=== PATIENT | female | born 1945 ===

== ENCOUNTER 2022-03-26 15:35 | Inpatient (IN) ==
[2022-03-26] MEDS ORDERED: Melatonin 3 MG TABLET PO PRN (19:07)
[2022-03-26] MEDS ORDERED: Ondansetron 4 MG/2 ML VIAL IVP PRN (19:07)
[2022-03-26] MEDS ORDERED: Naloxone 0.4 MG/ML INJ IVP PRN (19:07)
[2022-03-26] MEDS ORDERED: Acetaminophen 325 MG TABLET PO PRN (19:07)
[2022-03-26] MEDS ORDERED: *HR* OxyCODONE Immed Rel 5 MG TABLET PO PRN (19:07)
[2022-03-26] MEDS ORDERED: Vancomycin 500 MG in 0.9 % Sodium Chloride 250 ML IVPB SCH (20:00)
[2022-03-26] MEDS ORDERED: Vancomycin 500 MG in 0.9 % Sodium Chloride Mini Bag 100 ML IVPB ONE (20:00)
[2022-03-26] MEDS ORDERED: *HR* Heparin 5,000 UNIT/ML VIAL ONE (20:01)
[2022-03-26] MEDS: *HR* Heparin 5,000 UNIT/ML VIAL SQ SCH (20:16)
[2022-03-26] MEDS: 0.9 % Sodium Chloride 1,000 ML IVC SCH (20:17)
[2022-03-26] MEDS: Piperacillin/Tazobactam 3.375 GM in 0.9 % Sodium Chloride Mini Bag 100 ML IVPB SCH (23:23)
[2022-03-27] MEDS ORDERED: Morphine Sulfate 2 MG/ML SYRINGE IVP ONE
[2022-03-27 01:53] LABS: Protein/Creatinine Ratio,Urine 11.23 mg/mg (0.00-0.20); Sodium, Urine 63.1 mEq/L
[2022-03-27 02:24] LABS: Basophils % 0.2 %; Eosinophils % 0.2 %; Hematocrit 30.1 % (35.3-44.9); Hemoglobin 9.9 g/dL (11.5-15.4); Immature Granulocytes % 0.9 % (0-4); Lymphocytes # 0.5 K/mcL (0.6-4.6); Lymphocytes % 2.8 %; Mean Corpuscular HGB Conc 32.9 g/dL (31.6-35.5); Mean Corpuscular Hemoglobin 29.3 pg (28.0-33.3); Mean Corpuscular Volume 89.1 fL (83.0-100.0); Mean Platelet Volume 10.4 fL (9.4-12.4); Monocytes # 0.5 K/mcL (0.0-1.3); Monocytes % 2.7 %; Neutrophils # 17.9 K/mcL (1.6-8.9); Platelet Count 551 K/mcL (140-400); Red Blood Count 3.38 M/mcL (3.82-4.97); Red Cell Distribution Width 13.2 % (11.5-14.5); Segmented Neutrophils % 93.2 %; White Blood Count 19.2 K/mcL (4.3-11.1)
[2022-03-27 02:33] LABS: INR 1.3; Prothrombin Time 14.8 Seconds (9.4-12.1)
[2022-03-27 02:50] LABS: BUN/Creatinine Ratio 66 (6-26); Blood Urea Nitrogen 68 mg/dL (8-23); C-Reactive Protein 50 mg/L (Less than 10); Carbon Dioxide 19 mEq/L (23-29); Chloride 116 mEq/L (98-107); Glucose 135 mg/dL (70-105); Osmolality,Calculated 324 (280-300); Phosphorous 4.1 mg/dL (2.7-4.5); Potassium 3.5 mEq/L (3.5-5.1); Sodium 146 mEq/L (136-145); eGFR For African Americans > 60 (> 60); eGFR For Non-African Americans 52 (> 60)
[2022-03-27] MEDS: *HR* Heparin 5,000 UNIT/ML VIAL SQ SCH ×3 (04:51→20:29)
[2022-03-27] MEDS: Sodium Bicarbonate 75 MEQ in 0.45 % Sodium Chloride 1,000 ML IVC SCH ×3 (04:51→23:11)
[2022-03-27] MEDS: 0.9 % Sodium Chloride 1,000 ML IVC SCH (04:52)
[2022-03-27] MEDS ORDERED: D5% in Water 1,000 ML IVC PRN (07:24)
[2022-03-27] MEDS ORDERED: Dextrose Gel 15 GM/37.5 ML TUBE PO PRN ×2 (07:24)
[2022-03-27] MEDS ORDERED: *HR* Dextrose 50 % in Water (Syg) 50 ML SYRINGE IVP PRN (07:24)
[2022-03-27] MEDS: Piperacillin/Tazobactam 3.375 GM in 0.9 % Sodium Chloride Mini Bag 100 ML IVPB SCH ×3 (08:46→23:11)
[2022-03-27] MEDS: Insulin LISPRO 300 UNITS/3 ML VIAL SUBQ SCH ×2 (11:55→17:29)
[2022-03-27] MEDS ORDERED: Vancomycin 500 MG in 0.9 % Sodium Chloride Mini Bag 100 ML IVPB SCH (20:00)
[2022-03-28] MEDS: Insulin LISPRO 300 UNITS/3 ML VIAL SUBQ SCH ×5 (00:07→23:27)
[2022-03-28] MEDS ORDERED: *HR* HYDROmorphone (PF) 1 MG/ML SYRINGE IVP ONE (03:24)
[2022-03-28 04:47] LABS: Basophils % 0.1 %; Hemoglobin 9.2 g/dL (11.5-15.4); Immature Granulocytes % 1.3 % (0-4); Lymphocytes # 0.8 K/mcL (0.6-4.6); Lymphocytes % 7.3 %; Mean Corpuscular HGB Conc 31.7 g/dL (31.6-35.5); Mean Corpuscular Hemoglobin 28.3 pg (28.0-33.3); Mean Corpuscular Volume 89.2 fL (83.0-100.0); Mean Platelet Volume 10.2 fL (9.4-12.4); Monocytes # 0.3 K/mcL (0.0-1.3); Monocytes % 2.7 %; Neutrophils # 9.7 K/mcL (1.6-8.9); Platelet Count 535 K/mcL (140-400); Red Blood Count 3.25 M/mcL (3.82-4.97); Red Cell Distribution Width 12.9 % (11.5-14.5); Segmented Neutrophils % 88.6 %; White Blood Count 10.9 K/mcL (4.3-11.1)
[2022-03-28 05:01] LABS: Alanine Aminotransferase 12 Units/L (7-52); Albumin 2.8 g/dL (3.5-5.7); Albumin/Globulin Ratio 1.1 (1.1-2.2); Alkaline Phosphatase 56 Units/L (34-104); Aspartate Amino Transferase 17 Units/L (13-39); BUN/Creatinine Ratio 61 (6-26); Bilirubin,Total 0.5 mg/dL (0.3-1.0); Blood Urea Nitrogen 43 mg/dL (8-23); Calcium 8.8 mg/dL (8.6-10.3); Carbon Dioxide 25 mEq/L (23-29); Chloride 116 mEq/L (98-107); Globulin 2.6 g/dL (2.4-3.5); Glucose 85 mg/dL (70-105); Magnesium 1.8 mg/dL (1.6-2.6); Osmolality,Calculated 320 (280-300); Phosphorous 2.4 mg/dL (2.7-4.5); Potassium 2.8 mEq/L (3.5-5.1); Sodium 150 mEq/L (136-145); Total Protein 5.4 g/dL (6.4-8.9); eGFR For African Americans > 60 (> 60); eGFR For Non-African Americans > 60 (> 60)
[2022-03-28] MEDS: *HR* Heparin 5,000 UNIT/ML VIAL SQ SCH ×3 (06:39→22:55)
[2022-03-28] MEDS ORDERED: Potassium Chloride 20 MEQ in D5% in Water 1,000 ML IVC SCH (07:30)
[2022-03-28] MEDS: Piperacillin/Tazobactam 3.375 GM in 0.9 % Sodium Chloride Mini Bag 100 ML IVPB SCH ×3 (08:00→22:54)
[2022-03-28] MEDS ORDERED: Vancomycin 500 MG in 0.9 % Sodium Chloride Mini Bag 100 ML IVPB SCH (20:00)
[2022-03-28] MEDS ORDERED: Acetaminophen IV 1,000 MG/100 ML BAG IVPB ONE (23:04)
[2022-03-29 01:49] LABS: Basophils % 0.3 %; Hematocrit 32.2 % (35.3-44.9); Hemoglobin 10.2 g/dL (11.5-15.4); Immature Granulocytes % 1.1 % (0-4); Lymphocytes # 0.9 K/mcL (0.6-4.6); Lymphocytes % 5.9 %; Mean Corpuscular HGB Conc 31.7 g/dL (31.6-35.5); Mean Corpuscular Hemoglobin 28.6 pg (28.0-33.3); Mean Corpuscular Volume 90.2 fL (83.0-100.0); Mean Platelet Volume 10.3 fL (9.4-12.4); Monocytes # 0.6 K/mcL (0.0-1.3); Monocytes % 3.8 %; Neutrophils # 13.2 K/mcL (1.6-8.9); Platelet Count 605 K/mcL (140-400); Red Blood Count 3.57 M/mcL (3.82-4.97); Red Cell Distribution Width 12.8 % (11.5-14.5); Segmented Neutrophils % 88.9 %; White Blood Count 14.9 K/mcL (4.3-11.1)
[2022-03-29 02:09] LABS: BUN/Creatinine Ratio 55 (6-26); Blood Urea Nitrogen 30 mg/dL (8-23); Carbon Dioxide 24 mEq/L (23-29); Chloride 117 mEq/L (98-107); Glucose 90 mg/dL (70-105); Magnesium 1.8 mg/dL (1.6-2.6); Osmolality,Calculated 320 (280-300); Phosphorous 1.9 mg/dL (2.7-4.5); Potassium 2.8 mEq/L (3.5-5.1); Sodium 152 mEq/L (136-145); eGFR For African Americans > 60 (> 60); eGFR For Non-African Americans > 60 (> 60)
[2022-03-29] MEDS: Insulin LISPRO 300 UNITS/3 ML VIAL SUBQ SCH ×3 (05:24→17:45)
[2022-03-29] MEDS: *HR* Heparin 5,000 UNIT/ML VIAL SQ SCH ×3 (05:25→22:41)
[2022-03-29] MEDS: Piperacillin/Tazobactam 3.375 GM in 0.9 % Sodium Chloride Mini Bag 100 ML IVPB SCH ×3 (09:17→23:39)
[2022-03-29] MEDS: D5% in Water 1,000 ML IVC SCH ×2 (09:18→19:58)
[2022-03-29 12:07] LABS: Adenovirus Not Detected (Not Detect); Bordetella Pertussis Not Detected (Not Detect); Chlamydophila pneumoniae Not Detected (Not Detect); Coronavirus 229E Not Detected (Not Detect); Coronavirus HKU1 Not Detected (Not Detect); Coronavirus NL63 Not Detected (Not Detect); Coronavirus OC43 Not Detected (Not Detect); Human Metapneumovirus Not Detected (Not Detect); Human Rhinovirus/Enterovirus Not Detected (Not Detect); Influenza A Subtype 2009 H1 Not Detected (Not Detect); Influenza B Not Detected (Not Detect); Mycoplasma pneumoniae Not Detected (Not Detect); Parainfluenza Virus 1 Not Detected (Not Detect); Parainfluenza Virus 2 Not Detected (Not Detect); Parainfluenza Virus 3 Not Detected (Not Detect); Parainfluenza Virus 4 Not Detected (Not Detect); Respiratory Syncytial Virus Not Detected (Not Detect); SARS-CoV-2 Not Detected (Not Detect)
[2022-03-30] MEDS: Insulin LISPRO 300 UNITS/3 ML VIAL SUBQ SCH ×4 (00:55→17:25)
[2022-03-30 04:41] LABS: Basophils % 0.1 %; Eosinophils % 0.1 %; Hematocrit 29.5 % (35.3-44.9); Hemoglobin 9.5 g/dL (11.5-15.4); Lymphocytes # 0.9 K/mcL (0.6-4.6); Lymphocytes % 6.3 %; Mean Corpuscular HGB Conc 32.2 g/dL (31.6-35.5); Mean Corpuscular Hemoglobin 28.5 pg (28.0-33.3); Mean Corpuscular Volume 88.6 fL (83.0-100.0); Mean Platelet Volume 10.2 fL (9.4-12.4); Monocytes # 0.6 K/mcL (0.0-1.3); Neutrophils # 12.8 K/mcL (1.6-8.9); Platelet Count 606 K/mcL (140-400); Red Blood Count 3.33 M/mcL (3.82-4.97); Segmented Neutrophils % 88.5 %; White Blood Count 14.4 K/mcL (4.3-11.1)
[2022-03-30 05:02] LABS: BUN/Creatinine Ratio 46 (6-26); Blood Urea Nitrogen 26 mg/dL (8-23); Calcium 8.8 mg/dL (8.6-10.3); Carbon Dioxide 25 mEq/L (23-29); Chloride 115 mEq/L (98-107); Glucose 168 mg/dL (70-105); Magnesium 1.7 mg/dL (1.6-2.6); Osmolality,Calculated 313 (280-300); Phosphorous 1.4 mg/dL (2.7-4.5); Potassium 3.1 mEq/L (3.5-5.1); Sodium 147 mEq/L (136-145); eGFR For African Americans > 60 (> 60); eGFR For Non-African Americans > 60 (> 60)
[2022-03-30] MEDS: *HR* Heparin 5,000 UNIT/ML VIAL SQ SCH ×2 (05:44→15:47)
[2022-03-30] MEDS: D5% in Water 1,000 ML IVC SCH (05:44)
[2022-03-30] MEDS ORDERED: Potassium Phosphate 44 MEQ in 0.9 % Sodium Chloride 250 ML IVPB ONE (07:40)
[2022-03-30] MEDS: Piperacillin/Tazobactam 3.375 GM in 0.9 % Sodium Chloride Mini Bag 100 ML IVPB SCH (08:10)
[2022-03-30] MEDS: cefTRIAXone 2,000 MG in 0.9 % Sodium Chloride Mini Bag 100 ML IVPB SCH (17:16)
[2022-03-30] MEDS: Ampicillin 2,000 MG in 0.9 % Sodium Chloride Mini Bag 100 ML IVPB SCH (18:39)
[2022-03-30] MEDS: Acyclovir 500 MG in D5% in Water 100 ML IVPB SCH (20:16)
[2022-03-30] MEDS: Vancomycin 1,250 MG/262.5 ML IV.SOLN IVPB SCH (21:39)
[2022-03-31] MEDS: Ampicillin 2,000 MG in 0.9 % Sodium Chloride Mini Bag 100 ML IVPB SCH ×4 (00:19→17:55)
[2022-03-31] MEDS: D5% in Water 1,000 ML IVC SCH ×2 (00:20→14:25)
[2022-03-31] MEDS: *HR* Heparin 5,000 UNIT/ML VIAL SQ SCH ×4 (00:21→20:41)
[2022-03-31 03:09] LABS: Basophils # 0.1 K/mcL (0.0-0.2); Basophils % 0.3 %; Eosinophils # 0.1 K/mcL (0.0-0.6); Eosinophils % 0.6 %; Hemoglobin 9.7 g/dL (11.5-15.4); Immature Granulocytes % 1.6 % (0-4); Lymphocytes % 7.1 %; Mean Corpuscular HGB Conc 32.3 g/dL (31.6-35.5); Mean Corpuscular Volume 89.6 fL (83.0-100.0); Mean Platelet Volume 10.6 fL (9.4-12.4); Monocytes # 0.4 K/mcL (0.0-1.3); Neutrophils # 12.7 K/mcL (1.6-8.9); Platelet Count 568 K/mcL (140-400); Red Blood Count 3.35 M/mcL (3.82-4.97); Red Cell Distribution Width 13.2 % (11.5-14.5); Segmented Neutrophils % 87.4 %; White Blood Count 14.6 K/mcL (4.3-11.1)
[2022-03-31 03:28] LABS: BUN/Creatinine Ratio 39 (6-26); Blood Urea Nitrogen 25 mg/dL (8-23); Calcium 8.2 mg/dL (8.6-10.3); Carbon Dioxide 24 mEq/L (23-29); Chloride 114 mEq/L (98-107); Glucose 136 mg/dL (70-105); Osmolality,Calculated 306 (280-300); Potassium 3.6 mEq/L (3.5-5.1); Sodium 145 mEq/L (136-145); eGFR For African Americans > 60 (> 60); eGFR For Non-African Americans > 60 (> 60)
[2022-03-31] MEDS: cefTRIAXone 2,000 MG in 0.9 % Sodium Chloride Mini Bag 100 ML IVPB SCH ×2 (05:49→17:55)
[2022-03-31] MEDS: Insulin LISPRO 300 UNITS/3 ML VIAL SUBQ SCH ×4 (07:13→17:56)
[2022-03-31] MEDS ORDERED: Perflutren Lipid Microsphere 1.3 ML in 0.9 % Sodium Chloride 8.7 ML IVP PRN (07:32)
[2022-03-31] MEDS: Acyclovir 500 MG in D5% in Water 100 ML IVPB SCH ×2 (07:58→17:54)
[2022-03-31 10:27] LABS: Phosphorous 3.3 mg/dL (2.7-4.5)
[2022-03-31] MEDS ORDERED: Clinimix E 5%-15% SOLUTION 2,000 ML with MVI, adult with vitamin K 10 ML IVC SCH (17:00)
[2022-03-31 17:38] LABS: Appearance,CSF Clear (Clear); Red Blood Cell,CSF < 2000 RBC/mcL
[2022-03-31 18:02] LABS: Basophils,CSF 0 %; Eosinophils,CSF 0 %; Other Cells,CSF 0 %
[2022-03-31] MEDS: Vancomycin 1,250 MG/262.5 ML IV.SOLN IVPB SCH (20:39)
[2022-04-01] MEDS: Ampicillin 2,000 MG in 0.9 % Sodium Chloride Mini Bag 100 ML IVPB SCH ×4 (01:15→17:33)
[2022-04-01] MEDS: Insulin LISPRO 300 UNITS/3 ML VIAL SUBQ SCH ×5 (01:17→21:16)
[2022-04-01] MEDS: cefTRIAXone 2,000 MG in 0.9 % Sodium Chloride Mini Bag 100 ML IVPB SCH ×2 (05:52→18:11)
[2022-04-01] MEDS: *HR* Heparin 5,000 UNIT/ML VIAL SQ SCH ×3 (05:54→21:17)
[2022-04-01] MEDS: Acyclovir 500 MG in D5% in Water 100 ML IVPB SCH ×2 (05:54→18:44)
[2022-04-01 07:49] LABS: Basophils % 0.3 %; Eosinophils # 0.2 K/mcL (0.0-0.6); Hematocrit 30.4 % (35.3-44.9); Hemoglobin 9.8 g/dL (11.5-15.4); Immature Granulocytes % 1.4 % (0-4); Lymphocytes # 0.8 K/mcL (0.6-4.6); Lymphocytes % 6.2 %; Mean Corpuscular HGB Conc 32.2 g/dL (31.6-35.5); Mean Corpuscular Hemoglobin 28.8 pg (28.0-33.3); Mean Corpuscular Volume 89.4 fL (83.0-100.0); Mean Platelet Volume 10.4 fL (9.4-12.4); Monocytes # 0.4 K/mcL (0.0-1.3); Monocytes % 3.5 %; Neutrophils # 10.5 K/mcL (1.6-8.9); Platelet Count 482 K/mcL (140-400); Red Cell Distribution Width 13.1 % (11.5-14.5); Segmented Neutrophils % 86.6 %; White Blood Count 12.2 K/mcL (4.3-11.1)
[2022-04-01 07:57] LABS: BUN/Creatinine Ratio 47 (6-26); Blood Urea Nitrogen 18 mg/dL (8-23); Carbon Dioxide 28 mEq/L (23-29); Chloride 110 mEq/L (98-107); Glucose 184 mg/dL (70-105); Magnesium 1.6 mg/dL (1.6-2.6); Osmolality,Calculated 299 (280-300); Phosphorous 2.3 mg/dL (2.7-4.5); Potassium 3.2 mEq/L (3.5-5.1); Sodium 141 mEq/L (136-145); Triglycerides 107 mg/dL (< 150); eGFR For African Americans > 60 (> 60); eGFR For Non-African Americans > 60 (> 60)
[2022-04-01] MEDS ORDERED: Lidocaine -MPF 1% 5 ML AMPUL ID ONE (09:30)
[2022-04-01] MEDS ORDERED: Metoprolol XL (24 HR) Succ 25 MG TAB.ER.24H PO SCH (10:45)
[2022-04-01] MEDS ORDERED: Perflutren Lipid Microsphere 1.3 ML in 0.9 % Sodium Chloride 8.7 ML IVP PRN (11:20)
[2022-04-01] MEDS ORDERED: D10% in Water 500 ML IVC PRN ×2 (11:33→11:40)
[2022-04-01] MEDS ORDERED: Potassium Phosphate 44 MEQ in 0.9 % Sodium Chloride 250 ML IVPB ONE (11:52)
[2022-04-01] MEDS ORDERED: Clinimix E 5%-15% SOLUTION 2,000 ML with MVI, adult with vitamin K 10 ML IVC SCH (17:00)
[2022-04-01] MEDS: *HR* Metoprolol 5 MG/5 ML VIAL IVP SCH ×2 (17:36→21:17)
[2022-04-01] MEDS: Vancomycin 1,250 MG/262.5 ML IV.SOLN IVPB SCH (21:16)
[2022-04-02] MEDS: Ampicillin 2,000 MG in 0.9 % Sodium Chloride Mini Bag 100 ML IVPB SCH ×4 (01:01→18:03)
[2022-04-02] MEDS: Insulin LISPRO 300 UNITS/3 ML VIAL SUBQ SCH ×6 (01:02→21:34)
[2022-04-02] MEDS: cefTRIAXone 2,000 MG in 0.9 % Sodium Chloride Mini Bag 100 ML IVPB SCH ×2 (06:41→18:02)
[2022-04-02] MEDS: *HR* Heparin 5,000 UNIT/ML VIAL SQ SCH ×3 (06:42→21:34)
[2022-04-02] MEDS: Acyclovir 500 MG in D5% in Water 100 ML IVPB SCH ×2 (06:51→18:03)
[2022-04-02 07:24] LABS: Basophils % 0.3 %; Eosinophils # 0.2 K/mcL (0.0-0.6); Eosinophils % 1.5 %; Hematocrit 33.4 % (35.3-44.9); Hemoglobin 10.9 g/dL (11.5-15.4); Immature Granulocytes % 1.5 % (0-4); Lymphocytes # 0.7 K/mcL (0.6-4.6); Lymphocytes % 5.6 %; Mean Corpuscular HGB Conc 32.6 g/dL (31.6-35.5); Mean Corpuscular Hemoglobin 28.7 pg (28.0-33.3); Mean Corpuscular Volume 87.9 fL (83.0-100.0); Mean Platelet Volume 10.8 fL (9.4-12.4); Monocytes # 0.5 K/mcL (0.0-1.3); Monocytes % 3.5 %; Neutrophils # 11.4 K/mcL (1.6-8.9); Platelet Count 462 K/mcL (140-400); Red Cell Distribution Width 13.1 % (11.5-14.5); Segmented Neutrophils % 87.6 %
[2022-04-02 07:54] LABS: Alanine Aminotransferase 56 Units/L (7-52); Albumin 2.7 g/dL (3.5-5.7); Alkaline Phosphatase 93 Units/L (34-104); Aspartate Amino Transferase 42 Units/L (13-39); BUN/Creatinine Ratio 60 (6-26); Bilirubin,Total 0.3 mg/dL (0.3-1.0); Blood Urea Nitrogen 21 mg/dL (8-23); Calcium 8.6 mg/dL (8.6-10.3); Carbon Dioxide 27 mEq/L (23-29); Chloride 109 mEq/L (98-107); Globulin 2.6 g/dL (2.4-3.5); Glucose 149 mg/dL (70-105); Magnesium 1.6 mg/dL (1.6-2.6); Osmolality,Calculated 298 (280-300); Phosphorous 2.9 mg/dL (2.7-4.5); Potassium 4.1 mEq/L (3.5-5.1); Sodium 141 mEq/L (136-145); Total Protein 5.3 g/dL (6.4-8.9); eGFR For African Americans > 60 (> 60); eGFR For Non-African Americans > 60 (> 60)
[2022-04-02] MEDS: *HR* Metoprolol 5 MG/5 ML VIAL IVP SCH ×2 (09:09→21:34)
[2022-04-02] MEDS ORDERED: Clinimix E 5%-15% SOLUTION 2,000 ML with MVI, adult with vitamin K 10 ML IVC SCH (17:00)
[2022-04-02] MEDS ORDERED: Clinimix E 5%-15% SOLUTION 2,000 ML, Amino Acids 10% 0 ML with MVI, adult with vitami... IVC SCH (17:00)
[2022-04-02] MEDS: Vancomycin 1,250 MG/262.5 ML IV.SOLN IVPB SCH (21:29)
[2022-04-03] MEDS: Insulin LISPRO 300 UNITS/3 ML VIAL SUBQ SCH ×7 (00:40→23:27)
[2022-04-03] MEDS: Ampicillin 2,000 MG in 0.9 % Sodium Chloride Mini Bag 100 ML IVPB SCH ×5 (00:41→23:17)
[2022-04-03] MEDS: Acyclovir 500 MG in D5% in Water 100 ML IVPB SCH ×2 (06:41→19:23)
[2022-04-03] MEDS: cefTRIAXone 2,000 MG in 0.9 % Sodium Chloride Mini Bag 100 ML IVPB SCH ×2 (06:42→17:39)
[2022-04-03] MEDS: *HR* Heparin 5,000 UNIT/ML VIAL SQ SCH ×3 (06:42→23:15)
[2022-04-03 09:37] LABS: Basophils % 0.3 %; Eosinophils # 0.4 K/mcL (0.0-0.6); Eosinophils % 2.6 %; Hemoglobin 10.5 g/dL (11.5-15.4); Immature Granulocytes % 2.1 % (0-4); Lymphocytes % 6.8 %; Mean Corpuscular HGB Conc 32.8 g/dL (31.6-35.5); Mean Corpuscular Hemoglobin 29.2 pg (28.0-33.3); Mean Corpuscular Volume 88.9 fL (83.0-100.0); Mean Platelet Volume 11.3 fL (9.4-12.4); Monocytes # 0.6 K/mcL (0.0-1.3); Monocytes % 3.9 %; Neutrophils # 12.2 K/mcL (1.6-8.9); Platelet Count 443 K/mcL (140-400); Red Cell Distribution Width 13.1 % (11.5-14.5); Segmented Neutrophils % 84.3 %; White Blood Count 14.4 K/mcL (4.3-11.1)
[2022-04-03 09:59] LABS: Alanine Aminotransferase 39 Units/L (7-52); Albumin 2.3 g/dL (3.5-5.7); Albumin/Globulin Ratio 0.9 (1.1-2.2); Alkaline Phosphatase 84 Units/L (34-104); Aspartate Amino Transferase 33 Units/L (13-39); BUN/Creatinine Ratio 72 (6-26); Bilirubin,Total 0.2 mg/dL (0.3-1.0); Blood Urea Nitrogen 21 mg/dL (8-23); Calcium 8.1 mg/dL (8.6-10.3); Carbon Dioxide 25 mEq/L (23-29); Chloride 106 mEq/L (98-107); Globulin 2.6 g/dL (2.4-3.5); Glucose 175 mg/dL (70-105); Magnesium 1.5 mg/dL (1.6-2.6); Osmolality,Calculated 293 (280-300); Phosphorous 2.5 mg/dL (2.7-4.5); Potassium 3.5 mEq/L (3.5-5.1); Sodium 138 mEq/L (136-145); Total Protein 4.9 g/dL (6.4-8.9); eGFR For African Americans > 60 (> 60); eGFR For Non-African Americans > 60 (> 60)
[2022-04-03] MEDS: *HR* Metoprolol 5 MG/5 ML VIAL IVP SCH ×2 (10:14→20:18)
[2022-04-03] MEDS ORDERED: Clinimix E 5%-15% SOLUTION 2,000 ML with MVI, adult with vitamin K 10 ML IVC SCH (17:00)
[2022-04-03] MEDS: Vancomycin 1,250 MG/262.5 ML IV.SOLN IVPB SCH (20:18)
[2022-04-04 03:27] LABS: Basophils # 0.1 K/mcL (0.0-0.2); Basophils % 0.4 %; Eosinophils # 0.3 K/mcL (0.0-0.6); Eosinophils % 2.2 %; Hematocrit 30.7 % (35.3-44.9); Immature Granulocytes % 2.6 % (0-4); Lymphocytes % 7.5 %; Mean Corpuscular HGB Conc 32.6 g/dL (31.6-35.5); Mean Corpuscular Hemoglobin 29.1 pg (28.0-33.3); Mean Corpuscular Volume 89.2 fL (83.0-100.0); Mean Platelet Volume 11.2 fL (9.4-12.4); Monocytes # 0.6 K/mcL (0.0-1.3); Monocytes % 4.7 %; Neutrophils # 11.1 K/mcL (1.6-8.9); Platelet Count 463 K/mcL (140-400); Red Blood Count 3.44 M/mcL (3.82-4.97); Red Cell Distribution Width 13.4 % (11.5-14.5); Segmented Neutrophils % 82.6 %; White Blood Count 13.4 K/mcL (4.3-11.1)
[2022-04-04 03:47] LABS: Alanine Aminotransferase 30 Units/L (7-52); Albumin 2.2 g/dL (3.5-5.7); Albumin/Globulin Ratio 0.9 (1.1-2.2); Alkaline Phosphatase 71 Units/L (34-104); Aspartate Amino Transferase 30 Units/L (13-39); BUN/Creatinine Ratio 73 (6-26); Bilirubin,Total 0.3 mg/dL (0.3-1.0); Blood Urea Nitrogen 22 mg/dL (8-23); Carbon Dioxide 26 mEq/L (23-29); Chloride 107 mEq/L (98-107); Globulin 2.5 g/dL (2.4-3.5); Glucose 127 mg/dL (70-105); Magnesium 1.5 mg/dL (1.6-2.6); Osmolality,Calculated 293 (280-300); Phosphorous 3.7 mg/dL (2.7-4.5); Potassium 3.3 mEq/L (3.5-5.1); Sodium 139 mEq/L (136-145); Total Protein 4.7 g/dL (6.4-8.9); eGFR For African Americans > 60 (> 60); eGFR For Non-African Americans > 60 (> 60)
[2022-04-04] MEDS: Insulin LISPRO 300 UNITS/3 ML VIAL SUBQ SCH ×5 (05:40→22:15)
[2022-04-04] MEDS: Ampicillin 2,000 MG in 0.9 % Sodium Chloride Mini Bag 100 ML IVPB SCH ×2 (05:52→11:47)
[2022-04-04] MEDS: Acyclovir 500 MG in D5% in Water 100 ML IVPB SCH ×2 (05:52→17:27)
[2022-04-04] MEDS: *HR* Heparin 5,000 UNIT/ML VIAL SQ SCH ×3 (05:53→22:07)
[2022-04-04] MEDS: cefTRIAXone 2,000 MG in 0.9 % Sodium Chloride Mini Bag 100 ML IVPB SCH (06:42)
[2022-04-04] MEDS: *HR* Metoprolol 5 MG/5 ML VIAL IVP SCH ×2 (08:44→22:08)
[2022-04-04] MEDS ORDERED: MVI IVC SCH (17:00)
[2022-04-04] MEDS ORDERED: [UNRECOGNIZED DRUG - OTHER] IVC SCH (17:00)
[2022-04-04] MEDS ORDERED: CLINIMIX E IVC SCH (17:00)
[2022-04-04] MEDS ORDERED: Clinimix E 5%-15% SOLUTION 2,000 ML with MVI, adult with vitamin K 10 ML IVC SCH (17:00)
[2022-04-04] MEDS ORDERED: AMINO ACIDS 10% IVC SCH (17:00)
[2022-04-05] MEDS: Insulin LISPRO 300 UNITS/3 ML VIAL SUBQ SCH ×6 (00:27→22:59)
[2022-04-05 05:46] LABS: Basophils % 0.4 %; Eosinophils # 0.3 K/mcL (0.0-0.6); Immature Granulocytes % 2.5 % (0-4); Mean Corpuscular HGB Conc 33.3 g/dL (31.6-35.5); Mean Corpuscular Hemoglobin 29.8 pg (28.0-33.3); Mean Corpuscular Volume 89.3 fL (83.0-100.0); Mean Platelet Volume 10.9 fL (9.4-12.4); Monocytes # 0.6 K/mcL (0.0-1.3); Monocytes % 4.9 %; Neutrophils # 9.1 K/mcL (1.6-8.9); Platelet Count 406 K/mcL (140-400); Red Blood Count 3.36 M/mcL (3.82-4.97); Red Cell Distribution Width 14.1 % (11.5-14.5); Segmented Neutrophils % 80.2 %; White Blood Count 11.4 K/mcL (4.3-11.1)
[2022-04-05 06:07] LABS: Alanine Aminotransferase 25 Units/L (7-52); Albumin 2.4 g/dL (3.5-5.7); Albumin/Globulin Ratio 0.9 (1.1-2.2); Alkaline Phosphatase 87 Units/L (34-104); Aspartate Amino Transferase 24 Units/L (13-39); BUN/Creatinine Ratio 90 (6-26); Bilirubin,Total 0.2 mg/dL (0.3-1.0); Blood Urea Nitrogen 26 mg/dL (8-23); Calcium 8.5 mg/dL (8.6-10.3); Carbon Dioxide 28 mEq/L (23-29); Chloride 106 mEq/L (98-107); Globulin 2.6 g/dL (2.4-3.5); Glucose 110 mg/dL (70-105); Magnesium 1.6 mg/dL (1.6-2.6); Osmolality,Calculated 291 (280-300); Phosphorous 2.8 mg/dL (2.7-4.5); Potassium 3.7 mEq/L (3.5-5.1); Sodium 138 mEq/L (136-145); eGFR For African Americans > 60 (> 60); eGFR For Non-African Americans > 60 (> 60)
[2022-04-05] MEDS: *HR* Heparin 5,000 UNIT/ML VIAL SQ SCH ×3 (06:41→22:56)
[2022-04-05] MEDS: Acyclovir 500 MG in D5% in Water 100 ML IVPB SCH ×2 (06:49→17:25)
[2022-04-05] MEDS: *HR* Metoprolol 5 MG/5 ML VIAL IVP SCH ×2 (08:14→22:59)
[2022-04-05 12:33] LABS: HSV Source CSF
[2022-04-05] MEDS ORDERED: 0.9 % Sodium Chloride 500 ML ONE ×2 (15:04→15:09)
[2022-04-05] MEDS ORDERED: Lidocaine/EPI 1:100k 1% 50 ML VIAL ONE (15:04)
[2022-04-05] MEDS ORDERED: *HR* Midazolam HCl 2 MG/2 ML VIAL IVP ONE (15:18)
[2022-04-05] MEDS ORDERED: *HR* FentaNYL (PF) 100 MCG/2 ML VIAL IVP ONE (15:18)
[2022-04-05] MEDS ORDERED: *HR* FentaNYL (PF) 100 MCG/2 ML VIAL ONE (15:21)
[2022-04-05] MEDS ORDERED: *HR* Midazolam HCl 2 MG/2 ML VIAL ONE (15:21)
[2022-04-05] MEDS ORDERED: Iopamidol - 300 50 ML VIAL IVP ONE ×2 (16:10→16:11)
[2022-04-05] MEDS ORDERED: Clinimix E 5%-15% SOLUTION 2,000 ML with MVI, adult with vitamin K 10 ML IVC SCH (17:00)
[2022-04-06] MEDS: Insulin LISPRO 300 UNITS/3 ML VIAL SUBQ SCH ×6 (00:16→21:12)
[2022-04-06 03:54] LABS: Basophils % 0.3 %; Eosinophils # 0.1 K/mcL (0.0-0.6); Eosinophils % 0.7 %; Hematocrit 28.2 % (35.3-44.9); Hemoglobin 9.2 g/dL (11.5-15.4); Lymphocytes # 0.9 K/mcL (0.6-4.6); Lymphocytes % 9.7 %; Mean Corpuscular HGB Conc 32.6 g/dL (31.6-35.5); Mean Platelet Volume 11.1 fL (9.4-12.4); Monocytes # 0.6 K/mcL (0.0-1.3); Monocytes % 6.2 %; Neutrophils # 7.7 K/mcL (1.6-8.9); Platelet Count 389 K/mcL (140-400); Red Blood Count 3.17 M/mcL (3.82-4.97); Red Cell Distribution Width 14.3 % (11.5-14.5); Segmented Neutrophils % 81.1 %; White Blood Count 9.6 K/mcL (4.3-11.1)
[2022-04-06 04:10] LABS: Alanine Aminotransferase 20 Units/L (7-52); Albumin 2.3 g/dL (3.5-5.7); Albumin/Globulin Ratio 0.9 (1.1-2.2); Alkaline Phosphatase 74 Units/L (34-104); Aspartate Amino Transferase 22 Units/L (13-39); BUN/Creatinine Ratio 96 (6-26); Bilirubin,Total 0.3 mg/dL (0.3-1.0); Blood Urea Nitrogen 26 mg/dL (8-23); Calcium 8.4 mg/dL (8.6-10.3); Carbon Dioxide 26 mEq/L (23-29); Chloride 105 mEq/L (98-107); Globulin 2.5 g/dL (2.4-3.5); Glucose 116 mg/dL (70-105); Magnesium 1.6 mg/dL (1.6-2.6); Osmolality,Calculated 290 (280-300); Phosphorous 3.2 mg/dL (2.7-4.5); Potassium 3.6 mEq/L (3.5-5.1); Sodium 137 mEq/L (136-145); Total Protein 4.8 g/dL (6.4-8.9); eGFR For African Americans > 60 (> 60); eGFR For Non-African Americans > 60 (> 60)
[2022-04-06] MEDS: Acyclovir 500 MG in D5% in Water 100 ML IVPB SCH ×2 (06:45→16:59)
[2022-04-06] MEDS: *HR* Heparin 5,000 UNIT/ML VIAL SQ SCH ×3 (06:46→21:24)
[2022-04-06] MEDS: *HR* Metoprolol 5 MG/5 ML VIAL IVP SCH ×2 (08:06→16:10)
[2022-04-07] MEDS: *HR* Metoprolol 5 MG/5 ML VIAL IVP SCH ×2 (00:31→09:28)
[2022-04-07] MEDS: Insulin LISPRO 300 UNITS/3 ML VIAL SUBQ SCH ×6 (00:31→19:05)
[2022-04-07 04:59] LABS: Basophils % 0.3 %; Eosinophils # 0.1 K/mcL (0.0-0.6); Hematocrit 29.7 % (35.3-44.9); Hemoglobin 9.6 g/dL (11.5-15.4); Immature Granulocytes % 1.7 % (0-4); Lymphocytes % 8.4 %; Mean Corpuscular HGB Conc 32.3 g/dL (31.6-35.5); Mean Corpuscular Hemoglobin 29.2 pg (28.0-33.3); Mean Corpuscular Volume 90.3 fL (83.0-100.0); Mean Platelet Volume 11.3 fL (9.4-12.4); Monocytes # 0.7 K/mcL (0.0-1.3); Monocytes % 6.2 %; Neutrophils # 9.9 K/mcL (1.6-8.9); Platelet Count 370 K/mcL (140-400); Red Blood Count 3.29 M/mcL (3.82-4.97); Red Cell Distribution Width 15.2 % (11.5-14.5); Segmented Neutrophils % 82.4 %
[2022-04-07 05:07] LABS: BUN/Creatinine Ratio 82 (6-26); Blood Urea Nitrogen 28 mg/dL (8-23); Calcium 8.8 mg/dL (8.6-10.3); Carbon Dioxide 28 mEq/L (23-29); Chloride 103 mEq/L (98-107); Glucose 113 mg/dL (70-105); Magnesium 1.6 mg/dL (1.6-2.6); Osmolality,Calculated 286 (280-300); Potassium 4.5 mEq/L (3.5-5.1); Sodium 135 mEq/L (136-145); eGFR For African Americans > 60 (> 60); eGFR For Non-African Americans > 60 (> 60)
[2022-04-07] MEDS: *HR* Heparin 5,000 UNIT/ML VIAL SQ SCH ×3 (05:13→20:56)
[2022-04-07] MEDS: Acyclovir 500 MG in D5% in Water 100 ML IVPB SCH ×2 (05:21→17:35)
[2022-04-07] MEDS ORDERED: Melatonin 3 MG TABLET GTUBE PRN (14:42)
[2022-04-07] MEDS: Mirtazapine 15 MG TABLET GTUBE SCH (20:55)
[2022-04-07] MEDS: Gabapentin 100 MG CAPSULE GTUBE SCH (20:55)
[2022-04-08] MEDS: Insulin LISPRO 300 UNITS/3 ML VIAL SUBQ SCH ×4 (02:12→18:42)
[2022-04-08 04:46] LABS: Basophils % 0.3 %; Eosinophils # 0.1 K/mcL (0.0-0.6); Eosinophils % 1.2 %; Hematocrit 26.4 % (35.3-44.9); Hemoglobin 8.3 g/dL (11.5-15.4); Immature Granulocytes % 1.4 % (0-4); Lymphocytes # 0.9 K/mcL (0.6-4.6); Lymphocytes % 11.8 %; Mean Corpuscular HGB Conc 31.4 g/dL (31.6-35.5); Mean Corpuscular Hemoglobin 29.1 pg (28.0-33.3); Mean Corpuscular Volume 92.6 fL (83.0-100.0); Mean Platelet Volume 11.6 fL (9.4-12.4); Monocytes # 0.5 K/mcL (0.0-1.3); Neutrophils # 5.7 K/mcL (1.6-8.9); Platelet Count 341 K/mcL (140-400); Red Blood Count 2.85 M/mcL (3.82-4.97); Red Cell Distribution Width 15.8 % (11.5-14.5); Segmented Neutrophils % 78.3 %; White Blood Count 7.3 K/mcL (4.3-11.1)
[2022-04-08 05:07] LABS: BUN/Creatinine Ratio 66 (6-26); Blood Urea Nitrogen 21 mg/dL (8-23); Calcium 8.5 mg/dL (8.6-10.3); Carbon Dioxide 29 mEq/L (23-29); Chloride 103 mEq/L (98-107); Glucose 123 mg/dL (70-105); Osmolality,Calculated 286 (280-300); Potassium 4.3 mEq/L (3.5-5.1); Sodium 136 mEq/L (136-145); eGFR For African Americans > 60 (> 60); eGFR For Non-African Americans > 60 (> 60)
[2022-04-08] MEDS: *HR* Heparin 5,000 UNIT/ML VIAL SQ SCH ×3 (05:43→22:00)
[2022-04-08] MEDS: Acyclovir 500 MG in D5% in Water 100 ML IVPB SCH ×2 (05:44→18:47)
[2022-04-08] MEDS: Gabapentin 100 MG CAPSULE GTUBE SCH ×2 (10:39→22:00)
[2022-04-08] MEDS ORDERED: Iopamidol - 370 500 ML MLS IVP ONE (14:32)
[2022-04-08] MEDS: Mirtazapine 15 MG TABLET GTUBE SCH (22:00)
[2022-04-09] MEDS: Insulin LISPRO 300 UNITS/3 ML VIAL SUBQ SCH ×3 (00:07→12:28)
[2022-04-09 05:48] LABS: Basophils % 0.3 %; Eosinophils # 0.1 K/mcL (0.0-0.6); Eosinophils % 1.1 %; Hematocrit 27.6 % (35.3-44.9); Hemoglobin 8.8 g/dL (11.5-15.4); Immature Granulocytes % 1.1 % (0-4); Lymphocytes # 0.8 K/mcL (0.6-4.6); Lymphocytes % 12.5 %; Mean Corpuscular HGB Conc 31.9 g/dL (31.6-35.5); Mean Corpuscular Hemoglobin 29.7 pg (28.0-33.3); Mean Corpuscular Volume 93.2 fL (83.0-100.0); Mean Platelet Volume 11.5 fL (9.4-12.4); Monocytes # 0.5 K/mcL (0.0-1.3); Monocytes % 7.4 %; Neutrophils # 5.2 K/mcL (1.6-8.9); Platelet Count 311 K/mcL (140-400); Red Blood Count 2.96 M/mcL (3.82-4.97); Red Cell Distribution Width 16.5 % (11.5-14.5); Segmented Neutrophils % 77.6 %; White Blood Count 6.6 K/mcL (4.3-11.1)
[2022-04-09 06:00] LABS: BUN/Creatinine Ratio 53 (6-26); Blood Urea Nitrogen 19 mg/dL (8-23); Calcium 8.7 mg/dL (8.6-10.3); Carbon Dioxide 32 mEq/L (23-29); Chloride 99 mEq/L (98-107); Glucose 160 mg/dL (70-105); Osmolality,Calculated 284 (280-300); Potassium 4.6 mEq/L (3.5-5.1); Sodium 134 mEq/L (136-145); eGFR For African Americans > 60 (> 60); eGFR For Non-African Americans > 60 (> 60)
[2022-04-09] MEDS: *HR* Heparin 5,000 UNIT/ML VIAL SQ SCH (06:21)
[2022-04-09] MEDS: Acyclovir 500 MG in D5% in Water 100 ML IVPB SCH (06:22)
[2022-04-09] MEDS: Gabapentin 100 MG CAPSULE GTUBE SCH ×2 (08:16→21:32)
[2022-04-09] MEDS ORDERED: MetroNIDAZOLE 500 MG/100 ML 500 MG/100 ML BAG IVPB SCH (16:00)
[2022-04-09] MEDS ORDERED: Cefepime HCl 2,000 MG in 0.9 % Sodium Chloride 10 ML IVP SCH (16:00)
[2022-04-09] MEDS: Mirtazapine 15 MG TABLET GTUBE SCH (21:32)
[2022-04-10] MEDS: Gabapentin 100 MG CAPSULE GTUBE SCH ×2 (09:06→21:27)
[2022-04-10] MEDS: Mirtazapine 15 MG TABLET GTUBE SCH (21:27)
[2022-04-11] MEDS: Lacri-Lube 3.5 GM TUBE BOTH EYES SCH ×3 (00:22→22:17)
[2022-04-11] MEDS: Gabapentin 100 MG CAPSULE GTUBE SCH ×2 (10:29→22:15)
[2022-04-11] MEDS: Mirtazapine 15 MG TABLET GTUBE SCH (22:15)
[2022-04-11] MEDS: Atropine Sulfate 1% 40 DROP/2 ML BOTTLE SL PRN (22:16)
[2022-04-12] MEDS ORDERED: Haloperidol Oral Conc 10 MG/5 ML UDC GTUBE PRN (09:43)
[2022-04-12] MEDS: Lacri-Lube 3.5 GM TUBE BOTH EYES SCH ×2 (09:55→23:43)
[2022-04-12] MEDS: Gabapentin 100 MG CAPSULE GTUBE SCH ×2 (09:56→21:49)
[2022-04-12] MEDS: Atropine Sulfate 1% 40 DROP/2 ML BOTTLE SL PRN (15:38)
[2022-04-12] MEDS: Mirtazapine 15 MG TABLET GTUBE SCH (21:49)
[2022-04-13] MEDS: Lacri-Lube 3.5 GM TUBE BOTH EYES SCH ×2 (08:11→22:31)
[2022-04-13] MEDS: Gabapentin 100 MG CAPSULE GTUBE SCH ×2 (08:11→22:31)
[2022-04-13] MEDS: *HR* LORazepam Oral Conc 2 MG/ML PO PRN (17:36)
[2022-04-13] MEDS: Mirtazapine 15 MG TABLET GTUBE SCH (22:31)
[2022-04-14] MEDS: Gabapentin 100 MG CAPSULE GTUBE SCH ×2 (08:18→22:22)
[2022-04-14] MEDS: Lacri-Lube 3.5 GM TUBE BOTH EYES SCH ×2 (08:19→22:42)
[2022-04-14 19:43] VITALS: BP 129/64; PULSE 92; TEMP 99.8; O2SAT 93
[2022-04-14] MEDS: *HR* LORazepam Oral Conc 2 MG/ML PO PRN (22:21)
[2022-04-14] MEDS: Mirtazapine 15 MG TABLET GTUBE SCH (22:22)
[2022-04-15] MEDS: *HR* LORazepam Oral Conc 2 MG/ML PO PRN (05:25)
[2022-04-15] MEDS ORDERED: Haloperidol Oral Conc 10 MG/5 ML UDC PO PRN (09:58)
[2022-04-15] MEDS ORDERED: *HR* LORazepam Oral Conc 2 MG/ML SL PRN (09:59)
[2022-04-15] MEDS: Gabapentin 100 MG CAPSULE GTUBE SCH (10:12)
[2022-04-15] MEDS: Lacri-Lube 3.5 GM TUBE BOTH EYES SCH (10:52)
== END 2022-04-15 18:00 | DRG 466 ==
LOC: 3ANU → SUATTDRO 18:28 → 2ANU 04-09 15:04
PROVIDERS: ADMIT Internal Medicine; ATTEND Family Medicine
PROC: IRLUMPX (2022-03-31 13:00)